=== PATIENT | female | born 1985 | race Two or more races ===

== ENCOUNTER 2023-08-28 16:19 | Outpatient (REF) | payer MEDICAID, SELFPAY ==
--- NOTE | 2023-08-28 13:15 | PAPFT_PTH ---
PATIENT: Yarelis Arriaza LOC: [facility]#:[id number] AGE/SX: 38/F ROOM: RE08/28/[address]: Sofi Covington : 1985 BED: DIS: 08/28/2023 SPEC #: [id number] RECD: 08/31/23 13:39 STATUS: LEONARDO REQ #: [id number] BARBARA: 08/28/23 13:[address]: Sofi Covington DEPT: [facility] Cytology RECD BY: Gifty Ziegler Tissues: 1 - CX/ENDOCX FOR PAP SMEARS Procedures: PAP THIN PREP/[facility] Screening HPV DNA PROBE Comments: [id number] (CHLAMYDIA/GC)
[2023-08-31 10:23] LABS: Hepatitis C Ab w Rflx HCV PCR Negative (Negative)
[2023-08-31 10:30] LABS: HIV-1/2 Ag & Ab Screen Negative (Negative)
[2023-09-01 16:51] LABS: Chlamydia Result Negative (Negative); GC Result Negative (Negative)
== END 2023-08-28 16:20 | disposition home or self-care (01) ==
LOC: NCHCN 16:19
PROVIDERS: PCP Family Medicine; Visit Provider Family Medicine
DX: Z00.00 Encounter for general adult medical examination without abnormal findings (principal); Z12.4 Encounter for screening for malignant neoplasm of cervix
CPT/HCPCS: 86803; 87389; 87491; 87591; 88142; 87624

== ENCOUNTER 2025-06-14 18:54 | Outpatient (REF) | payer BC, SELFPAY ==
[2025-06-14 21:02] LABS: HCT 39.6 % (36.0-46.0); HGB 13.0 g/dL (11.2-15.7); MCH 29.3 pg (27.0-33.0); MCHC 32.8 % (32.0-36.0); MCV 89 fL (80-95); MPV 10.8 fL (8.0-11.0); Platelet Count 320 10^3/uL (130-400); RBC 4.44 10^6/uL (3.93-5.22); RDW 12.4 % (11.7-14.6); RDW-SD 41.1 fL; WBC 7.17 10^3/uL (4.4-10.8)
[2025-06-14 21:21] LABS: Anion Gap 5.9 mmol/L (3-11); BUN 6 mg/dL (7-18); CO2 31.1 mmol/L (21.0-32.0); Calcium 8.8 mg/dL (8.5-10.1); Chloride 105 mmol/L (98-107); Estimated GFR 83.40 (mL/min/1.73m2); Glucose 93 mg/dL (74-106); Potassium 4.5 mmol/L (3.5-5.1); Sodium 142 mmol/L (136-145); TSH 0.26 uIU/mL (0.36-3.74)
[2025-06-14 22:29] LABS: Hemoglobin A1C 4.9 % (<5.7)
[2025-06-14 22:30] LABS: Calculated LDL 101 mg/dL (<100); Cholesterol 173 mg/dL (<200); HDL Cholesterol 54 mg/dL (>or=50); Triglyceride 90 mg/dL (<150)
== END 2025-06-14 18:55 | disposition home or self-care (01) ==
LOC: NCHCN 18:54
PROVIDERS: PCP Family Medicine; Visit Provider Family Medicine
DX: R53.83 Other fatigue (principal); Z13.220 Encounter for screening for lipoid disorders; R79.89 Other specified abnormal findings of blood chemistry
CPT/HCPCS: 80048; 80061; 85027; 83036; 84439; 84443